=== PATIENT | male | born 1970 | race Hispanic/Latino ===

== ENCOUNTER 2019-02-25 13:29 | Emergency (ER) | payer OTHER ==
--- NOTE | 2019-02-25 14:11 | ER ---
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 Transition of care: patient was not received from another setting of care. Onset of symptoms was February 25, 2019. Risk Assessment: Do you want to hurt yourself or someone else? Patient reports no desire to harm self or others. Initial Sepsis Screen: Does the patient meet any 2 criteria? No. Patient's initial sepsis screen is negative. Does the patient have a suspected source of infection? No. Patient's initial sepsis screen is negative. Care prior to arrival: None. 13:36 Method Of Arrival: Ambulatory aa5 13:36 Acuity: SAULO 4 aa5 Triage Assessment: 14:08 General: Appears in no apparent distress. comfortable, Behavior is cooperative, bp appropriate for age, anxious. Historical: - Allergies: 13:38 No Known Allergies; aa5 - PMHx: 13:39 Hypertension; aa5 - PSHx: 13:38 back; aa5 - Immunization history:: Flu vaccine status is unknown. - Social history:: Smoking status: Patient/guardian denies using tobacco. - Ebola Screening: : No symptoms or risks identified at this time. Screenin:45 Abuse screen: Denies threats or abuse. Denies injuries from another. Nutritional bp screening: No deficits noted. Tuberculosis screening: No symptoms or risk factors identified. Fall Risk None identified. Assessment: 13:43 General: Appears in no apparent distress. comfortable, Behavior is cooperative, bp appropriate for age, anxious. Pain: Denies pain. Neuro: Level of Consciousness is awake, alert, obeys commands, Oriented to person, place, time, situation, Appropriate for age. Cardiovascular: No deficits noted. Respiratory: Airway is patent Respiratory effort is even, unlabored, Respiratory pattern is regular, symmetrical. GI: No signs and/or symptoms were reported involving the gastrointestinal system. : No signs and/or symptoms were reported regarding the genitourinary system. EENT: No deficits noted. Derm: No deficits noted. Musculoskeletal: Circulation, motion, and sensation intact. Range of motion: intact in all extremities. Injury Description: Laceration sustained to left medial ankle. 14:10 Reassessment: PT D/C HOME AMBULATORY WITH FAMILY, DX WITH BLEEDING VARICOSE VEIN. bp Vital Signs: 13:38 BP 158 / 97; Pulse 105; Resp 18 S; Temp 98.9(TE); Pulse Ox 100% on R/A; Weight 102.06 aa5 kg (R); Pain 5/10; 14:00 BP 147 / 85; Pulse 95; Resp 16; Pulse Ox 100% ; bp ED Course: 13:35 Patient arrived in ED. rg4 13:37 Triage completed. aa5 13:37 Arm band placed on. aa5 13:40 Martinez Delgado, CUONG is Primary Nurse. bp 13:41 Jacque Varela FNP-C is PHCP. snw 13:42 Francisco Funk MD is Attending Physician. snw 13:44 Sadiq Li PA is PHCP. snw 13:45 Patient has correct armband on for positive identification. Bed in low position. Call bp light in reach. Side rails up X2. 14:00 Assist provider with laceration repair on left medial ankle that was 2.5 cm. or less bp using sutures. Set up tray. Performed by Sadiq CLEMENT Dressed with Neosporin, Patient tolerated well. 14:12 Patient did not have IV access during this emergency room visit. bp Administered Medications: No medications were administered Outcome: 14:10 Discharge ordered by MD. bearden 14:16 Discharged to home ambulatory, with family. bp 14:16 Condition: stable 14:16 Discharge instructions given to patient, Instructed on discharge instructions, follow up and referral plans. wound care, Demonstrated understanding of instructions, follow-up care, wound care. 14:16 Patient left the ED. bp Signatures: Jacque Varela FNP-C COVER CREASER-Csnw Latonia Alegria RN RN aa5 Sadiq Li PA PA jrAlmita Smith rg4 Martinez Delgado, CUONG RN bp
--- NOTE | 2019-02-25 14:11 | EDPHYS ---
Physician Documentation [facility] Name: Austyn Ratliff Age: 48 yrs Sex: Male : 1970 Arrival Date: 02/25/2019 Time: 13:35 Bed 19 Private MD: ED Physician Francisco Funk HPI: 02/25 14:06 This 48 yrs old Male presents to ER via Ambulatory with complaints of bleeding jr8 from ankle. 14:06 Onset: The symptoms/episode began/occurred acutely, today. Associated signs and jr8 symptoms: The patient has no apparent associated signs or symptoms. Modifying factors: The symptoms are alleviated by nothing, the symptoms are aggravated by nothing. Severity of symptoms: At their worst the symptoms were mild, in the emergency department the symptoms are unchanged. The patient has not experienced similar symptoms in the past. The patient has not recently seen a physician. Stated that after he finished showering and noticed bleeding from medial ankle region. Denies shaving to area or scratching area that he was aware of. Stated that it was squirting and could not get it to stop. Historical: - Allergies: 13:38 No Known Allergies; aa5 - PMHx: 13:39 Hypertension; aa5 - PSHx: 13:38 back; aa5 - Immunization history:: Flu vaccine status is unknown. - Social history:: Smoking status: Patient/guardian denies using tobacco. - Ebola Screening: : No symptoms or risks identified at this time. ROS: 14:22 Eyes: Negative for injury, pain, redness, and discharge, ENT: Negative for injury, jr8 pain, and discharge, Neck: Negative for injury, pain, and swelling, Cardiovascular: Negative for chest pain, palpitations, and edema, Respiratory: Negative for shortness of breath, cough, wheezing, and pleuritic chest pain, Abdomen/GI: Negative for abdominal pain, nausea, vomiting, diarrhea, and constipation, Back: Negative for injury and pain, MS/Extremity: Negative for injury and deformity, Neuro: Negative for headache, weakness, numbness, tingling, and seizure. 14:22 Skin: Positive for ulceration, of the left medial ankle. Exam: 14:22 Eyes: Pupils equal round and reactive to light, extra-ocular motions intact. Lids and jr8 lashes normal. Conjunctiva and sclera are non-icteric and not injected. Cornea within normal limits. Periorbital areas with no swelling, redness, or edema. ENT: Nares patent. No nasal discharge, no septal abnormalities noted. Tympanic membranes are normal and external auditory canals are clear. Oropharynx with no redness, swelling, or masses, exudates, or evidence of obstruction, uvula midline. Mucous membranes moist. Neck: Trachea midline, no thyromegaly or masses palpated, and no cervical lymphadenopathy. Supple, full range of motion without nuchal rigidity, or vertebral point tenderness. No Meningismus. Cardiovascular: Regular rate and rhythm with a normal S1 and S2. No gallops, murmurs, or rubs. Normal PMI, no JVD. No pulse deficits. Respiratory: Lungs have equal breath sounds bilaterally, clear to auscultation and percussion. No rales, rhonchi or wheezes noted. No increased work of breathing, no retractions or nasal flaring. Abdomen/GI: Soft, non-tender, with normal bowel sounds. No distension or tympany. No guarding or rebound. No evidence of tenderness throughout. Back: No spinal tenderness. No costovertebral tenderness. Full range of motion. MS/ Extremity: Pulses equal, no cyanosis. Neurovascular intact. Full, normal range of motion. Neuro: Awake and alert, GCS 15, oriented to person, place, time, and situation. Cranial nerves II-XII grossly intact. Motor strength 5/5 in all extremities. Sensory grossly intact. Cerebellar exam normal. Normal gait. 14:22 Skin: varicose veins noted to bilateral legs. Small open ulceration to medial left ankle with bleeding noted. No pulsatile bleeding present . Vital Signs: 13:38 BP 158 / 97; Pulse 105; Resp 18 S; Temp 98.9(TE); Pulse Ox 100% on R/A; Weight 102.06 aa5 kg (R); Pain 5/10; 14:00 BP 147 / 85; Pulse 95; Resp 16; Pulse Ox 100% ; bp Procedures: 14:22 Performed Ligation of vein. Skin cleaned over and around bleeding site with hibaclenz. jr8 One 4-0 prolene sutured around vein. Complete hemostasis post ligation of vessel . MDM: 13:42 Patient medically screened. snw 14:09 Data reviewed: vital signs, nurses notes, and as a result, I will discharge patient. jr8 Data interpreted: Pulse oximetry: on room air is 100 %. Interpretation: normal. Counseling: I had a detailed discussion with the patient and/or guardian regarding: the historical points, exam findings, and any diagnostic results supporting the discharge/admit diagnosis, the need for outpatient follow up, a family practitioner, to return to the emergency department if symptoms worsen or persist or if there are any questions or concerns that arise at home. Administered Medications: No medications were administered Disposition: 02/25/19 14:10 Discharged to Home. Impression: Varicose veins of left lower extremity with ulcer - and bleeding . - Condition is Stable. - Discharge Instructions: Venous Stasis or Chronic Venous Insufficiency. - Medication Reconciliation Form, Thank You Letter, Antibiotic Education, Prescription Opioid Use, Work release form form. - Follow up: Private Physician; When: 5 - 6 days; Reason: Wound Recheck, Recheck today's complaints, Continuance of care, Staple/Suture removal, Re-evaluation by your physician. - Problem is new. - Symptoms have improved. Addendum: 03/01/2019 07:04 Co-signature as Attending Physician, Francisco Funk MD. r n Signatures: Jacque Varela, CHARTERED WEALTH MANAGER-C CHARTERED WEALTH MANAGER-Csnw Francisco Funk MD MD rn Latonia Alegria RN RN aa5 Sadiq Li PA PA jr8 Martinez Delgado RN RN bp Corrections: (The following items were deleted from the chart) 02/25 14:16 14:10 02/25/2019 14:10 Discharged to Home. Impression: Varicose veins of left lower bp extremity with ulcer - and bleeding . Condition is Stable. Forms are Work release form, Medication Reconciliation Form, Thank You Letter, Antibiotic Education, Prescription Opioid Use. Follow up: Private Physician; When: 5 - 6 days; Reason: Wound Recheck, Recheck today's complaints, Continuance of care, Staple/Suture removal, Re-evaluation by your physician. Problem is new. Symptoms have improved. jr8
== END 2019-02-25 14:16 | disposition home or self-care (01) ==
LOC: ER 13:29
PROC: 06L Lower Veins, Occlusion (ICD-10-PCS; principal; 2019-02-25)
DX: I83.023 Varicose veins of left lower extremity with ulcer of ankle (principal); I10 Essential (primary) hypertension
CPT/HCPCS: 99283